=== PATIENT | male | born 1965 | race Caucasian/White ===

== ENCOUNTER 2017-03-25 17:21 | Inpatient (IN) | payer MEDICAID, OTHER ==
[~2017-03-25] VITALS: Ht 190.5 cm; Wt 107.4 kg
[~2017-03-25 17:21] MED LIST: ACID1TAB3 PO; AMOX1TAB64 PO; HYDR-3240 PO; METF500T4 PO
[2017-03-25] MEDS ORDERED: ONDANSETRON 2MG/ML, 2ML IVPush ONE (18:30)
[2017-03-25] MEDS ORDERED: AMPICILLIN/SULBACTAM 3 GM in SODIUM CHLORIDE 0.9% 100 ML IV ONE (18:30)
[2017-03-25] MEDS ORDERED: MORPHINE SULFATE 4 MG/ML, 1ML IVPush PRN (18:30)
[2017-03-25] MEDS ORDERED: VANCOMYCIN 2,000 MG in SODIUM CHLORIDE 0.9% 500 ML IV ONE (18:30)
[2017-03-25] MEDS ORDERED: PHARMACOKINETIC MONITORING MC PRN ×2 (18:30→22:00)
[2017-03-25] MEDS ORDERED: SODIUM CHLORIDE 0.9% 1,000ML IVBOLUS ONE ×2 (18:30)
[2017-03-25] MEDS ORDERED: VANCOMYCIN PER PHARMACY MC PRN ×2 (18:30→21:00)
[2017-03-25] MEDS ORDERED: ACETAMINOPHEN 500 MG TABLET ONE (18:40)
[2017-03-25 18:50] LABS: PH, VENOUS 7.378 pH (7.320-7.420)
[2017-03-25] MEDS ORDERED: ACETAMINOPHEN 500 MG TABLET PO ONE (19:00)
[2017-03-25] MEDS: SODIUM CHLORIDE 0.9% 1,000ML IVBOLUS ONE ×2 (19:00→19:42)
[2017-03-25 19:05] LABS: ASPARTATE AMINO TRANSFERASE 6 U/L (15-37); BLOOD UREA NITROGEN 12 mg/dL (7-18)
[2017-03-25] MEDS ORDERED: MORPHINE SULFATE 4 MG/ML, 1ML ONE (19:21)
[2017-03-25] MEDS ORDERED: ONDANSETRON 2MG/ML, 2ML ONE (19:22)
[2017-03-25] MEDS ORDERED: ASPI-496 PO (19:31)
[2017-03-25] MEDS ORDERED: METF10002 PO (19:31)
[2017-03-25] MEDS ORDERED: DIPHENHYDRAMINE 50 MG/ML, 1ML IVPush ONE (20:00)
[2017-03-25] MEDS ORDERED: PHARMACOKINETIC CONSULTATION MC ONE ×2 (20:30→22:00)
[2017-03-25] MEDS ORDERED: ASPIRIN 81 MG TABLET EC PO PRN (20:30)
[2017-03-25 20:39] VITALS: BP 113/66
[2017-03-25] MEDS ORDERED: ONDANSETRON ODT 4 MG PO PRN (21:00)
[2017-03-25] MEDS ORDERED: HYDROmorphone 2 MG/ML, 1ML IVPush PRN (21:00)
[2017-03-25] MEDS ORDERED: TEMAZEPAM 15 MG CAPSULE PO PRN (21:00)
[2017-03-25 21:13] VITALS: BP 103/55
[2017-03-25] MEDS: SODIUM CHLORIDE 0.9% 1,000 ML IV SCH (21:34)
[2017-03-25] MEDS: ENOXAPARIN 40 MG/0.4 ML SQ SCH (21:58)
[2017-03-25] MEDS ORDERED: VANCOMYCIN 1,800 MG in SODIUM CHLORIDE 0.9% 250 ML IV SCH (22:00)
[2017-03-26 02:09] VITALS: BP_SYST 108; BP_SYST 155; BP_DIAS 65; BP_DIAS 90
[2017-03-26] MEDS: AMPICILLIN/SULBACTAM 3 GM in SODIUM CHLORIDE 0.9% 100 ML IV SCH ×4 (02:24→20:42)
[2017-03-26] MEDS: SODIUM CHLORIDE 0.9% 1,000 ML IV SCH ×2 (04:44→13:16)
[2017-03-26 06:02] LABS: BLOOD UREA NITROGEN 10 mg/dL (7-18)
[2017-03-26 07:25] VITALS: BP 110/70
[2017-03-26] MEDS: SENNA/DOCUSATE TABLET PO SCH (08:00)
[2017-03-26] MEDS: INSULIN ASPART 100 UNITS/ML, PEN SQ-INSULIN SCH ×4 (08:00→20:44)
[2017-03-26] MEDS ORDERED: VANCOMYCIN 1,800 MG in SODIUM CHLORIDE 0.9% 250 ML IV SCH (09:30)
[2017-03-26 13:22] VITALS: BP 111/70
[2017-03-26] MEDS ORDERED: DIPHENHYDRAMINE 50 MG/ML, 1ML IVPush ONE (15:00)
[2017-03-26] MEDS: VANCOMYCIN 1,800 MG in SODIUM CHLORIDE 0.9% 250 ML IV SCH (16:05)
[2017-03-26 20:21] VITALS: BP 127/79
[2017-03-26] MEDS: ENOXAPARIN 40 MG/0.4 ML SQ SCH (20:43)
[2017-03-27] MEDS: SODIUM CHLORIDE 0.9% 1,000 ML IV SCH (01:14)
[2017-03-27 01:24] VITALS: BP 107/70
[2017-03-27] MEDS: AMPICILLIN/SULBACTAM 3 GM in SODIUM CHLORIDE 0.9% 100 ML IV SCH ×4 (02:03→20:03)
[2017-03-27 06:56] VITALS: BP 107/68
[2017-03-27] MEDS: SENNA/DOCUSATE TABLET PO SCH (07:47)
[2017-03-27] MEDS: INSULIN ASPART 100 UNITS/ML, PEN SQ-INSULIN SCH ×4 (07:47→20:04)
[2017-03-27] MEDS ORDERED: DIPHENHYDRAMINE 50 MG/ML, 1ML IVPush ONE (09:15)
[2017-03-27] MEDS: VANCOMYCIN 1,800 MG in SODIUM CHLORIDE 0.9% 250 ML IV SCH (09:43)
[2017-03-27 12:46] VITALS: BP 121/78
[2017-03-27 19:18] VITALS: BP 133/80
[2017-03-27] MEDS: ENOXAPARIN 40 MG/0.4 ML SQ SCH (20:03)
[2017-03-28] MEDS: AMPICILLIN/SULBACTAM 3 GM in SODIUM CHLORIDE 0.9% 100 ML IV SCH ×4 (02:35→19:53)
[2017-03-28 02:41] VITALS: BP 122/76
[2017-03-28] MEDS: VANCOMYCIN 1,800 MG in SODIUM CHLORIDE 0.9% 250 ML IV SCH ×2 (03:39→21:32)
[2017-03-28 06:11] LABS: BLOOD UREA NITROGEN 9 mg/dL (7-18)
[2017-03-28] MEDS: SENNA/DOCUSATE TABLET PO SCH (07:55)
[2017-03-28] MEDS: INSULIN ASPART 100 UNITS/ML, PEN SQ-INSULIN SCH ×4 (07:55→21:14)
[2017-03-28 10:18] VITALS: BP 120/78
[2017-03-28] MEDS: INSULIN DETEMIR 100 UNITS/ML, PEN SQ-INSULIN SCH ×2 (14:36→21:14)
[2017-03-28 14:49] VITALS: BP 137/83
[2017-03-28 19:47] VITALS: BP 147/91
[2017-03-28] MEDS ORDERED: DIPHENHYDRAMINE 50 MG/ML, 1ML IVPush SCH (21:00)
[2017-03-28] MEDS: ENOXAPARIN 40 MG/0.4 ML SQ SCH (21:13)
[2017-03-29 02:18] VITALS: BP 124/75
[2017-03-29] MEDS: AMPICILLIN/SULBACTAM 3 GM in SODIUM CHLORIDE 0.9% 100 ML IV SCH ×2 (02:48→08:01)
[2017-03-29 07:35] VITALS: BP 142/83
[2017-03-29] MEDS: SENNA/DOCUSATE TABLET PO SCH (07:43)
[2017-03-29] MEDS: INSULIN ASPART 100 UNITS/ML, PEN SQ-INSULIN SCH ×2 (08:01→12:06)
[2017-03-29] MEDS: INSULIN DETEMIR 100 UNITS/ML, PEN SQ-INSULIN SCH (08:01)
[2017-03-29] MEDS ORDERED: SULF1TAB24 PO (11:15)
[2017-03-29 13:36] VITALS: BP 124/78
== END 2017-03-29 13:55 | disposition home or self-care (01) | DRG 872 ==
LOC: ED 19:21 → EDIP 19:30 → 3NE 20:22 → DCLOUNGE 03-29 13:27
PROVIDERS: ADMIT Internal Medicine; ATTEND Internal Medicine
DX: A41.9 Sepsis, unspecified organism (principal); L03.116 Cellulitis of left lower limb; E87.1 Hypo-osmolality and hyponatremia; E11.40 Type 2 diabetes mellitus with diabetic neuropathy, unspecified; Z80.1 Family history of malignant neoplasm of trachea, bronchus and lung; E11.621 Type 2 diabetes mellitus with foot ulcer; E11.65 Type 2 diabetes mellitus with hyperglycemia; E11.51 Type 2 diabetes mellitus with diabetic peripheral angiopathy without gangrene; Z68.30 Body mass index [BMI] 30.0-30.9, adult; E66.9 Obesity, unspecified; Z88.1 Allergy status to other antibiotic agents; Z88.8 Allergy status to other drugs, medicaments and biological substances; L97.529 Non-pressure chronic ulcer of other part of left foot with unspecified severity; D64.9 Anemia, unspecified; R65.20 Severe sepsis without septic shock; Z79.4 Long term (current) use of insulin
CPT/HCPCS: 36415; 80048; 80053; 82010; 82803; 82962; 83036; 83605; 84145; 85025; 85651; 86141; 87040; 87070; 87077; 87186; 87205; 93922; 96361; 96365; 96375; J0295; J1650; J1815; J2405; J3370; J1200; J7030; J7040; J7050

== ENCOUNTER 2017-12-10 20:38 | Inpatient (IN) | payer MEDICAID ==
[~2017-12-10] VITALS: Ht 190.5 cm; Wt 104.8 kg
[~2017-12-10 20:38] MED LIST changes: +ASPI-496 PO; +METF10002 PO; +SULF1TAB24 PO
[2017-12-10] MEDS ORDERED: SODIUM CHLORIDE 0.9% 1,000 ML IV ONE (20:45)
[2017-12-10] MEDS ORDERED: VANCOMYCIN PER PHARMACY IV ONE (21:00)
[2017-12-10] MEDS ORDERED: SODIUM CHLORIDE 0.9% 1,000ML IVBOLUS ONE (21:00)
[2017-12-10] MEDS ORDERED: PIPERACILLIN/TAZO/PMX 3.375GM 50 ML IV ONE (21:00)
[2017-12-10 21:16] LABS: BASOPHILS # (AUTO) 0.07 x10^3/uL (0-0.1); BASOPHILS % (AUTO) 1 % (0-1); EOSINOPHILS # (AUTO) 0.07 x10^3/uL (0-0.4); EOSINOPHILS % (AUTO) 1 % (1-7); LYMPHOCYTES # (AUTO) 1.23 x10^3/uL (1-3.4); LYMPHOCYTES % (AUTO) 10 % (22-44); MD NO; MEAN CORPUSCULAR HEMOGLOBIN 27.4 pg (27.5-34.5); MEAN CORPUSCULAR HGB CONC 33.3 g/dL (33.2-36.2); MEAN CORPUSCULAR VOLUME 82.3 fL (81-97); MONOCYTES # (AUTO) 0.76 x10^3/uL (0.2-0.8); MONOCYTES % (AUTO) 6 % (2-9); NEUTROPHILS # (AUTO) 10.51 x10^3/uL (1.8-6.8); NEUTROPHILS % (AUTO) 83 % (42-75); PLATELET COUNT 312 x10^3/uL (130-400); RED BLOOD COUNT 5.59 x10^6/uL (4.38-5.82); RED CELL DISTRIBUTION WIDTH 13.6 % (9.4-14.8)
[2017-12-10] MEDS ORDERED: PIPERACILLIN/TAZO/PMX 3.375GM 50 ML ONE (21:17)
[2017-12-10 21:25] LABS: ANION GAP 8 mmol/L (5-15); CALCIUM 8.6 mg/dL (8.5-10.1); CHLORIDE 101 mmol/L (98-107); CREATININE 1.01 mg/dL (0.7-1.3)
[2017-12-10] MEDS ORDERED: VANCOMYCIN 2,000 MG in SODIUM CHLORIDE 0.9% 500 ML IV ONE (21:30)
[2017-12-11] LABS: MICROSCOPIC NOT IND
[2017-12-11] MEDS ORDERED: VANCOMYCIN PER PHARMACY MC PRN
[2017-12-11] MEDS ORDERED: BISACODYL 10 MG SUPP PR PRN
[2017-12-11] MEDS ORDERED: POLYETHYLENE GLYCOL 17 GM PACKET PO PRN
[2017-12-11] MEDS ORDERED: morphine SULFATE 10 MG/ML, 1ML IVPush PRN
[2017-12-11 00:02] LABS: HEMOGLOBIN A1C 9.3 % (4.2-6.3)
[2017-12-11 00:05] LABS: CULTURE INDICATED? NO
[2017-12-11 00:47] VITALS: BP 123/83
[2017-12-11] MEDS ORDERED: PHARMACOKINETIC MONITORING MC PRN (01:00)
[2017-12-11] MEDS: SODIUM CHLORIDE 0.9% 1,000 ML IV SCH ×3 (02:00→20:06)
[2017-12-11] MEDS: INSULIN LISPRO 100 UNITS/ML, PEN SQ-INSULIN SCH ×5 (02:08→22:04)
[2017-12-11] MEDS: HEPARIN 5,000 UNITS/ML, 1ML SQ SCH ×3 (02:08→16:00)
[2017-12-11] MEDS: PIPERACILLIN/TAZO/PMX 3.375GM 50 ML IV SCH ×4 (03:18→21:41)
[2017-12-11 05:25] LABS: CHLORIDE 105 mmol/L (98-107)
[2017-12-11 05:33] LABS: ALANINE AMINOTRANSFERASE 12 U/L (12-78); ALBUMIN 2.9 g/dL (3.4-5.0); ALKALINE PHOSPHATASE 38 U/L (45-117); ANION GAP 7 mmol/L (5-15); BILIRUBIN,TOTAL 1.1 mg/dL (0.2-1.0); CALCIUM 7.5 mg/dL (8.5-10.1); CREATININE 0.89 mg/dL (0.7-1.3); TOTAL PROTEIN 6.1 g/dL (6.4-8.2)
[2017-12-11 05:37] LABS: BASOPHILS # (AUTO) 0.03 x10^3/uL (0-0.1); BASOPHILS % (AUTO) 0 % (0-1); EOSINOPHILS # (AUTO) 0.17 x10^3/uL (0-0.4); EOSINOPHILS % (AUTO) 2 % (1-7); LYMPHOCYTES % (AUTO) 13 % (22-44); MD NO; MEAN CORPUSCULAR HEMOGLOBIN 27.7 pg (27.5-34.5); MEAN CORPUSCULAR VOLUME 81.4 fL (81-97); MONOCYTES # (AUTO) 0.92 x10^3/uL (0.2-0.8); MONOCYTES % (AUTO) 9 % (2-9); NEUTROPHILS # (AUTO) 8.26 x10^3/uL (1.8-6.8); NEUTROPHILS % (AUTO) 77 % (42-75); PLATELET COUNT 220 x10^3/uL (130-400); RED BLOOD COUNT 4.49 x10^6/uL (4.38-5.82); RED CELL DISTRIBUTION WIDTH 13.8 % (9.4-14.8)
[2017-12-11] MEDS ORDERED: GADOBUTROL 10 MMOL/10 ML PFS ONE (07:06)
[2017-12-11 07:29] VITALS: BP 108/68
[2017-12-11] MEDS: SENNA/DOCUSATE TABLET PO SCH (07:57)
[2017-12-11] MEDS: metFORMIN 850 MG TABLET PO SCH ×2 (08:06→16:14)
[2017-12-11] MEDS ORDERED: DAPTOMYCIN 650 MG in SODIUM CHLORIDE 0.9% 100 ML IV ONE (11:30)
[2017-12-11] MEDS ORDERED: MIDAZOLAM 1 MG/ML, 2ML ONE (12:03)
[2017-12-11] MEDS ORDERED: FENTANYL PF 100 MCG/2ML ONE ×2 (12:03→14:03)
[2017-12-11] MEDS ORDERED: SUCCINYLCHOLINE 20 MG/ML, 10ML ONE (12:05)
[2017-12-11] MEDS ORDERED: PROPOFOL 10 MG/ML, 20ML ONE (13:12)
[2017-12-11] MEDS ORDERED: ONDANSETRON 2MG/ML, 2ML ONE (13:12)
[2017-12-11] MEDS ORDERED: DEXAMETHASONE 4 MG/ML, 1ML ONE (13:13)
[2017-12-11] MEDS ORDERED: ALBUTEROL SULFATE 2.5 MG/3 ML NPPB PRN (13:30)
[2017-12-11] MEDS ORDERED: MIDAZOLAM 1 MG/ML, 2ML IV PRN (13:30)
[2017-12-11] MEDS ORDERED: OXYcodone 5 MG/5 ML ORAL.SOL UDC PO PRN (13:30)
[2017-12-11] MEDS ORDERED: MEPERIDINE/PF 25MG/0.5ML IVPush PRN (13:30)
[2017-12-11] MEDS ORDERED: FENTANYL PF 100 MCG/2ML IV PRN (13:30)
[2017-12-11] MEDS ORDERED: PROMETHAZINE 25 MG/ML, 1ML IV PRN (13:30)
[2017-12-11] MEDS ORDERED: ACETAMINOPHEN 325 MG TABLET PO PRN ×2 (13:30)
[2017-12-11] MEDS ORDERED: LABETALOL 5MG/ML, 20ML IV PRN (13:30)
[2017-12-11] MEDS ORDERED: hydrALAzine 20 MG/ML, 1ML IV PRN (13:30)
[2017-12-11] MEDS ORDERED: HYDROmorphone 1 MG/ML, 1ML IV PRN (13:30)
[2017-12-11] MEDS ORDERED: ONDANSETRON 2MG/ML, 2ML IVPush PRN ×2 (13:30)
[2017-12-11] MEDS ORDERED: OXYcodone 5 MG/5 ML ORAL.SOL UDC ONE (14:03)
[2017-12-11] MEDS ORDERED: ACETAMINOPHEN 650 MG/20.3 ML UDC ONE (14:03)
[2017-12-11 14:58] VITALS: BP_SYST 103; BP_SYST 65; BP_DIAS 69
[2017-12-11] MEDS ORDERED: ROCURONIUM 10 MG/ML,10ML ONE (16:26)
[2017-12-11] MEDS ORDERED: EPHEDRINE 50 MG/ML, 1ML ONE (16:26)
[2017-12-11] MEDS ORDERED: SODIUM CHLORIDE 0.9%, 250ML IVBOLUS ONE (18:30)
[2017-12-11 19:27] VITALS: BP 95/59
[2017-12-12] MEDS: HEPARIN 5,000 UNITS/ML, 1ML SQ SCH ×4 (00:19→23:48)
[2017-12-12 02:27] VITALS: BP 100/59
[2017-12-12] MEDS: PIPERACILLIN/TAZO/PMX 3.375GM 50 ML IV SCH ×2 (03:28→08:51)
[2017-12-12 05:37] LABS: ALBUMIN 2.8 g/dL (3.4-5.0); ANION GAP 9 mmol/L (5-15); CALCIUM 8.2 mg/dL (8.5-10.1); CHLORIDE 105 mmol/L (98-107)
[2017-12-12 05:42] LABS: ALANINE AMINOTRANSFERASE 15 U/L (12-78); ALKALINE PHOSPHATASE 46 U/L (45-117); BASOPHILS # (AUTO) 0.02 x10^3/uL (0-0.1); BASOPHILS % (AUTO) 0 % (0-1); CREATININE 0.91 mg/dL (0.7-1.3); EOSINOPHILS # (AUTO) 0.01 x10^3/uL (0-0.4); EOSINOPHILS % (AUTO) 0 % (1-7); LYMPHOCYTES # (AUTO) 0.88 x10^3/uL (1-3.4); LYMPHOCYTES % (AUTO) 5 % (22-44); MD NO; MEAN CORPUSCULAR HEMOGLOBIN 27.9 pg (27.5-34.5); MEAN CORPUSCULAR HGB CONC 33.8 g/dL (33.2-36.2); MEAN CORPUSCULAR VOLUME 82.5 fL (81-97); MEAN PLATELET VOLUME 8.2 fL (7.4-10.4); MONOCYTES # (AUTO) 0.69 x10^3/uL (0.2-0.8); MONOCYTES % (AUTO) 4 % (2-9); NEUTROPHILS # (AUTO) 14.83 x10^3/uL (1.8-6.8); NEUTROPHILS % (AUTO) 90 % (42-75); PLATELET COUNT 263 x10^3/uL (130-400); RED BLOOD COUNT 4.56 x10^6/uL (4.38-5.82); RED CELL DISTRIBUTION WIDTH 13.6 % (9.4-14.8); TOTAL PROTEIN 6.4 g/dL (6.4-8.2)
[2017-12-12] MEDS: SODIUM CHLORIDE 0.9% 1,000 ML IV SCH ×3 (06:05→23:48)
[2017-12-12 07:18] VITALS: BP 114/64
[2017-12-12] MEDS: metFORMIN 850 MG TABLET PO SCH ×2 (08:50→17:00)
[2017-12-12] MEDS: SENNA/DOCUSATE TABLET PO SCH (08:50)
[2017-12-12] MEDS: INSULIN LISPRO 100 UNITS/ML, PEN SQ-INSULIN SCH ×4 (08:51→21:16)
[2017-12-12] MEDS: INSULIN GLARGINE 100 UNITS/ML, PEN SQ-INSULIN SCH ×2 (11:58→21:16)
[2017-12-12] MEDS ORDERED: PNEUMOCOCCAL 23 VACCINE IM-VACC ONE (12:30)
[2017-12-12] MEDS ORDERED: FLU VACC QS2017-18 (36MOS+) UP/PF 0.5 ML IM-VACC ONE (12:30)
[2017-12-12 12:57] VITALS: BP 113/67
[2017-12-12] MEDS: CEFAZOLIN PMX 2GM/50ML 50 ML IVPB SCH ×2 (15:11→23:48)
[2017-12-12 19:12] VITALS: BP 115/73
[2017-12-12] MEDS: OXYcodone IR 5MG TABLET PO PRN (23:48)
[2017-12-13 00:55] VITALS: BP 111/71
[2017-12-13 05:27] LABS: BASOPHILS # (AUTO) 0.03 x10^3/uL (0-0.1); BASOPHILS % (AUTO) 0 % (0-1); EOSINOPHILS # (AUTO) 0.09 x10^3/uL (0-0.4); EOSINOPHILS % (AUTO) 1 % (1-7); LYMPHOCYTES % (AUTO) 18 % (22-44); MD NO; MEAN CORPUSCULAR HGB CONC 33.7 g/dL (33.2-36.2); MEAN PLATELET VOLUME 8.2 fL (7.4-10.4); MONOCYTES # (AUTO) 0.71 x10^3/uL (0.2-0.8); MONOCYTES % (AUTO) 7 % (2-9); NEUTROPHILS % (AUTO) 74 % (42-75); PLATELET COUNT 228 x10^3/uL (130-400); RED BLOOD COUNT 4.44 x10^6/uL (4.38-5.82); RED CELL DISTRIBUTION WIDTH 13.9 % (9.4-14.8)
[2017-12-13 05:40] LABS: ANION GAP 6 mmol/L (5-15); CALCIUM 8.1 mg/dL (8.5-10.1); CHLORIDE 107 mmol/L (98-107); CREATININE 1.09 mg/dL (0.7-1.3)
[2017-12-13 07:24] VITALS: BP 108/76
[2017-12-13] MEDS: HEPARIN 5,000 UNITS/ML, 1ML SQ SCH ×3 (07:47→23:46)
[2017-12-13] MEDS: metFORMIN 850 MG TABLET PO SCH ×2 (07:47→18:07)
[2017-12-13] MEDS: INSULIN LISPRO 100 UNITS/ML, PEN SQ-INSULIN SCH ×4 (09:03→21:08)
[2017-12-13] MEDS: SENNA/DOCUSATE TABLET PO SCH (09:03)
[2017-12-13] MEDS: INSULIN GLARGINE 100 UNITS/ML, PEN SQ-INSULIN SCH ×2 (09:04→21:07)
[2017-12-13] MEDS: CEFAZOLIN PMX 2GM/50ML 50 ML IVPB SCH (09:55)
[2017-12-13] MEDS: SODIUM CHLORIDE 0.9% 1,000 ML IV SCH ×2 (12:32→22:49)
[2017-12-13] MEDS: ERTAPENEM 1 GM in SODIUM CHLORIDE 0.9% 50 ML IV SCH (12:33)
[2017-12-13 12:41] VITALS: BP 112/73
[2017-12-13 19:25] VITALS: BP 127/77
[2017-12-13] MEDS: OXYcodone IR 5MG TABLET PO PRN (21:12)
[2017-12-14 01:10] VITALS: BP 123/79
[2017-12-14] MEDS: INSULIN LISPRO 100 UNITS/ML, PEN SQ-INSULIN SCH ×4 (07:00→21:10)
[2017-12-14] MEDS: HEPARIN 5,000 UNITS/ML, 1ML SQ SCH ×2 (08:00→16:00)
[2017-12-14 08:11] VITALS: BP 119/75
[2017-12-14] MEDS: SENNA/DOCUSATE TABLET PO SCH (09:17)
[2017-12-14] MEDS: metFORMIN 850 MG TABLET PO SCH ×2 (09:18→18:25)
[2017-12-14] MEDS: INSULIN GLARGINE 100 UNITS/ML, PEN SQ-INSULIN SCH ×2 (09:55→21:09)
[2017-12-14] MEDS: ERTAPENEM 1 GM in SODIUM CHLORIDE 0.9% 50 ML IV SCH (12:31)
[2017-12-14 14:30] VITALS: BP 134/81
[2017-12-14] MEDS ORDERED: METF850T PO (14:40)
[2017-12-14] MEDS ORDERED: ERTA1VIA IV (14:40)
[2017-12-14] MEDS: SODIUM CHLORIDE 0.9% 1,000 ML IV SCH (19:00)
[2017-12-14 19:32] VITALS: BP 125/80
[2017-12-14] MEDS: OXYcodone IR 5MG TABLET PO PRN (21:26)
[2017-12-15 03:12] VITALS: BP 129/79
[2017-12-15] MEDS: SODIUM CHLORIDE 0.9% 1,000 ML IV SCH (05:00)
[2017-12-15] MEDS: INSULIN LISPRO 100 UNITS/ML, PEN SQ-INSULIN SCH (07:00)
[2017-12-15 07:03] VITALS: BP 111/73
[2017-12-15] MEDS: HEPARIN 5,000 UNITS/ML, 1ML SQ SCH ×2 (08:00)
[2017-12-15] MEDS: SENNA/DOCUSATE TABLET PO SCH (09:00)
[2017-12-15] MEDS: metFORMIN 850 MG TABLET PO SCH (10:01)
[2017-12-15] MEDS: INSULIN GLARGINE 100 UNITS/ML, PEN SQ-INSULIN SCH (10:03)
[2017-12-15] MEDS: ERTAPENEM 1 GM in SODIUM CHLORIDE 0.9% 50 ML IV SCH (10:10)
== END 2017-12-15 11:09 | disposition home or self-care (01) | DRG 617 ==
LOC: ED 21:28 → EDIP 12-11 00:23 → 3NE 12-11 00:27
PROVIDERS: ADMIT Hospitalist; ATTEND Hospitalist
PROC: 0L8P3ZZ Division of Left Lower Leg Tendon, Percutaneous Approach (ICD-10-PCS; 2017-12-11)
PROC: 0Y6N0Z4 Detachment at Left Foot, Complete 1st Ray, Open Approach (ICD-10-PCS; principal; 2017-12-11 12:30)
PROC: 02HV33Z Insertion of Infusion Device into Superior Vena Cava, Percutaneous Approach (ICD-10-PCS; 2017-12-13)
PROC: B548ZZA Ultrasonography of Superior Vena Cava, Guidance (ICD-10-PCS; 2017-12-13)
DX: E11.69 Type 2 diabetes mellitus with other specified complication (principal); L03.116 Cellulitis of left lower limb; E11.40 Type 2 diabetes mellitus with diabetic neuropathy, unspecified; M86.172 Other acute osteomyelitis, left ankle and foot; E11.65 Type 2 diabetes mellitus with hyperglycemia; R17 Unspecified jaundice; D64.9 Anemia, unspecified; E11.621 Type 2 diabetes mellitus with foot ulcer; S91.302A Unspecified open wound, left foot, initial encounter; L03.032 Cellulitis of left toe; M10.9 Gout, unspecified; Z66 Do not resuscitate; Z79.84 Long term (current) use of oral hypoglycemic drugs; Z80.1 Family history of malignant neoplasm of trachea, bronchus and lung; Z82.49 Family history of ischemic heart disease and other diseases of the circulatory system; Z89.412 Acquired absence of left great toe; Z91.14 Patient's other noncompliance with medication regimen; L97.509 Non-pressure chronic ulcer of other part of unspecified foot with unspecified severity
CPT/HCPCS: 36415; 36569; 76937; 77001; 80048; 80053; 81003; 82040; 82962; 83036; 83605; 84550; 85025; 85651; 86140; 86141; 87040; 87070; 87075; 87076; 87077; 87147; 87186; 87205; 88304; 88311; 90732; 96361; 96365; A9585; J0690; J0878; J1100; J1335; J1644; J2250; J2405; J2543; J2704; J3010; J3370; C1751; J0330; J1815; J7030; J7040; J7050